=== PATIENT | female | born 1955 ===

== ENCOUNTER 2020-07-25 07:12 | Outpatient (CLI) | payer OTHER | END 2020-07-25 07:19 | disposition home or self-care (01) | LOC: NUCLEAR 07:12 | PROVIDERS: ATTEND Internal Medicine | DX: I25.10 Atherosclerotic heart disease of native coronary artery without angina pectoris (principal); E11.9 Type 2 diabetes mellitus without complications | CPT/HCPCS: 78452; 93017; A9500; J0153 ==